=== PATIENT | female | born 2005 | race Caucasian/White ===

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

== ENCOUNTER 2024-08-22 18:47 | Emergency (ER) | payer OTHER, SELFPAY ==
[2024-08-22 18:48] VITALS: BP 116/72; PULSE 110; RESP 18; TEMP 37.2; O2SAT 98; BMI 33.6
--- NOTE | 2024-08-22 20:24 | ED.VIS.DENTA ---
HPI History of Present Illness Chief Complaint: Dental Informant: patient and family Narrative Narrative: 18-year-old female presenting to the emergency room with dental pain. Patient states for about a year she has had pain bilateral lower molars. She does not have a dentist. Starting yesterday she began to have significantly more pain and now swelling along the mandible. No reported fevers. No reported difficulty opening her mouth. PFSH PFSH Medical History no medical history Home Medications ?Medication ?Instructions ?Recorded ?Last Taken ?Type ibuprofen 600 mg tablet 600 mg PO Q6H PRN PRN pain #20 01/03/23 Unknown Rx TABLETS chlorhexidine gluconate 0.12 % 15 ml buccal BID #1,893 mL 08/22/24 Unknown Rx mouthwash (Peridex) oxycodone-acetaminophen 5 mg-325 1 tab PO Q6H PRN PRN Pain 3 days 08/22/24 Unknown Rx mg tablet #12 TABLETS penicillin V potassium 250 mg 500 mg (2 x 250 mg) PO 4X/DAY #40 08/22/24 Unknown Rx tablet tabs Allergy/AdvReac Type Severity Reaction Status Date / Time No Known Allergies Allergy Verified 08/22/24 18:48 Social History Smoking Status: Never smoker ROS ROS ED Constitutional Constitutional ED: Denies chills or weight loss Eyes Eyes: Denies change in vision or diplopia ENT ENT ED: Reports other Details: Dental pain ; Denies ear pain, rhinorrhea or sore throat Cardiovascular Cardiovascular: Denies chest pain, orthopnea, palpitations or racing heartbeat Respiratory/Chest Respiratory/Chest: Denies cough, dyspnea or orthopnea Gastrointestinal Gastrointestinal: Denies abdominal pain, diarrhea, nausea or vomiting Genitourinary Genitourinary ED: Denies dysuria, hematuria or urinary frequency Musculoskeletal Musculoskeletal: Denies arthralgias or myalgias Integumentary Denies abscess or rash Neurologic Neurologic: Denies headache(s) or weakness Psychiatric Psychiatric: Denies anxiety, depression, suicidal ideation or suicidal thoughts Endocrine Endocrinology: Denies polydipsia, polyphagia or polyuria Allergic/Immunologic Allergic/Immunologic ED: Denies mouth swelling, tongue swelling or urticaria EXAM Physical Exam Const Vital Signs: 08/22/24 18:48 Temperature 98.9 F Temperature Source Oral Pulse Rate 110 H Respiratory Rate 18 Blood Pressure 116/72 Blood Pressure Mean 86 Pulse Ox 98 Oxygen Delivery Method Room Air Positive well nourished and well developed General Appearance ED: well developed HEENT Reports normocephalic, head/scalp atraumatic and moist mucous membranes HEENT Narrative: Bottom right second molar shows very focal thick decay in all 4 quadrants of the tooth. There is no focal gumline swelling to suggest an abscess. The entirety of the gingiva demonstrates erythema and mild swelling consistent with gingivitis. Left lower second molar demonstrates an apparent cavity in the lateral posterior aspect of the tooth. Tender to palpation. There is some mild overlying mandible swelling but no erythema. There is no trismus. Floor the mouth is soft. Eyes PERRL and EOMs intact bilaterally Neck no lymphadenopathy, supple and no JVD Resp normal respiratory effort and clear to auscultation bilaterally Cardio regular rate, regular rhythm and no murmurs GI normal to inspection, nondistended, normoactive bowel sounds and non-tender Palpation: soft Back/Spine no CVA tenderness and normal ROM Extremity normal to inspection General Extremety ED: Negative for edema General Extremity: Negative for edema Neuro oriented x3 and CN's II-XII intact bilaterally Sensorium / Orientation: alert Motor Exam: strength 5/5 throughout Psych mental status grossly normal Mood & Affect: Negative for depressed or tearful Skin no rashes or lesions noted and no wounds MDM MDM MDM Narrative Medical decision making narrative: Differential diagnosis includes but not limited to Ric's angina ANUG gingivitis dental abscess dental caries/decay Patient was started on chlorhexidine rinses as well as Pen-Vee K and a few Percocet for severe pain. Would recommend dental follow-up as soon as possible. History & Record Review Discussion w/independent historian: Patient and Family Discharge Plan Triage Chief Complaint: Dental ED Provider: Miguel Adams Dx/Rx/DC Orders Clinical Impression: Dental caries, Gingivitis, Pain, dental Instructions: Understanding Gingivitis, ED Dental Cavity, ED Dental Abscess Prescriptions: New oxycodone-acetaminophen 5-325 mg tablet 1 tab PO Q6H PRN PRN (Reason: Pain) 3 Days Qty: 12 0RF penicillin V potassium 250 mg tablet 500 mg PO 4X/DAY Qty: 40 0RF chlorhexidine gluconate [Peridex] 0.12 % mouthwash 15 ml buccal BID Qty: 1893 0RF No Action ibuprofen 600 mg tablet 600 mg PO Q6H PRN PRN (Reason: pain) Qty: 20 0RF Referrals: Lakeisha Oleary NP, [employer]OTE SENSING SPECIALIST-C [Non-Staff] - Print Language: Liberian Disposition Disposition: Home, Self Care Discharge Date/Time: 08/22/24 19:52
== END 2024-08-22 19:52 | disposition home or self-care (01) ==
LOC: ED 19:45
PROVIDERS: Emergency Provider Emergency Medicine; PCP Pediatrics; Visit Provider Emergency Medicine
DX: K08.89 Other specified disorders of teeth and supporting structures (principal); K02.9 Dental caries, unspecified; K05.10 Chronic gingivitis, plaque induced
CPT/HCPCS: 99282